=== PATIENT | female | born 1965 | race Caucasian/White ===

== ENCOUNTER 2018-06-22 13:37 | Emergency (ER) | payer BC ==
[2018-06-22] MEDS: TETRACAINE 0.5% 4 ML OPH LEFT EYE (14:23)
[2018-06-22] MEDS: FLUORESCEIN STRIP LEFT EYE (14:23)
== END 2018-06-22 15:27 | disposition home or self-care (01) ==
LOC: FTE 13:37
DX: H57.89 Other specified disorders of eye and adnexa (principal); Z87.891 Personal history of nicotine dependence
CPT/HCPCS: 99283